=== PATIENT | female | born 1940 | race Two or more races ===

== ENCOUNTER 2019-08-24 14:02 | Outpatient (CLI) | payer OTHER | END 2019-08-24 14:47 | disposition home or self-care (01) | LOC: SONOGRAMA 14:02 | DX: M25.532 Pain in left wrist (principal) ==

== ENCOUNTER 2019-11-28 14:18 | Outpatient (CLI) | payer OTHER | END 2019-11-28 14:26 | disposition home or self-care (01) | LOC: RAD 14:18 | PROVIDERS: ATTEND Orthopaedic Surgery | DX: S52.532S Colles' fracture of left radius, sequela (principal) ==

== ENCOUNTER 2023-03-04 11:53 | Outpatient (CLI) | payer OTHER | END 2023-03-04 12:05 | disposition home or self-care (01) | LOC: RAD 11:53 | DX: R05.8 Other specified cough (principal); J31.0 Chronic rhinitis; M25.511 Pain in right shoulder ==

== ENCOUNTER 2024-08-31 14:56 | Outpatient (CLI) | payer OTHER ==
[~2024-08-31 14:56] MED LIST: CLONAZEPAM0.5 M1 PO; COZAAR100 MG PO; FLONASE16 GM NS; LEVSIN/SL0.125 MG SL; PEPCID AC20 MG PO; SYNTHROID75 MCG PO
== END 2024-08-31 15:01 | disposition home or self-care (01) ==
LOC: SONOGRAMA 14:56
PROVIDERS: ATTEND Internal Medicine
DX: M54.50 Low back pain, unspecified (principal); E04.2 Nontoxic multinodular goiter

== ENCOUNTER 2025-05-31 13:41 | Outpatient (CLI) | payer OTHER | END 2025-05-31 13:45 | disposition home or self-care (01) | LOC: MRI 13:41 | PROVIDERS: ATTEND Family Medicine | DX: M50.123 Cervical disc disorder at C6-C7 level with radiculopathy (principal) | CPT/HCPCS: 72141 ==